=== PATIENT | female | born 1980 ===

== ENCOUNTER → 2017-09-07 06:57 | Outpatient (CLI) | payer OTHER | END | disposition home or self-care (01) | LOC: LAB 06:57 | DX: D63.8 Anemia in other chronic diseases classified elsewhere (principal); E03.9 Hypothyroidism, unspecified; E16.2 Hypoglycemia, unspecified; E78.5 Hyperlipidemia, unspecified; C56.2 Malignant neoplasm of left ovary; N91.1 Secondary amenorrhea; E55.9 Vitamin D deficiency, unspecified ==

== ENCOUNTER 2017-09-07 07:50 | Outpatient (CLI) | payer OTHER | END 2017-09-07 15:06 | disposition home or self-care (01) | LOC: MRI 07:50 | DX: R19.07 Generalized intra-abdominal and pelvic swelling, mass and lump (principal); D25.2 Subserosal leiomyoma of uterus | CPT/HCPCS: 72196 ==

== ENCOUNTER 2017-09-07 08:56 | Outpatient (CLI) | payer OTHER | END 2017-09-07 15:07 | disposition home or self-care (01) | LOC: MAMO-SONO 08:56 | DX: N60.01 Solitary cyst of right breast (principal); N60.02 Solitary cyst of left breast; Z12.31 Encounter for screening mammogram for malignant neoplasm of breast ==